=== PATIENT | female | born 1950 | race Caucasian/White ===

== ENCOUNTER → 2020-01-10 | Day surgery (SDC) | payer MEDICARE, OTHER ==
[2020-01-07 09:38] LABS: BASOPHILS # (AUTO) 0.1 (0.0-0.1); BASOPHILS % 1.3 % (0.0-1.0); EOSINOPHILS # (AUTO) 0.1 (0.0-0.4); EOSINOPHILS % 2.6 % (0.0-6.0); HEMATOCRIT 37.6 % (34.2-44.1); HEMOGLOBIN 11.7 g/dL (12.0-16.0); LYMPHOCYTES # (AUTO) 1.7 (1.0-3.2); LYMPHOCYTES % 31.4 % (18.0-39.1); MEAN CORPUSCULAR HEMOGLOBIN 28.1 pg (28-32); MEAN CORPUSCULAR HGB CONC 31.1 g/dL (31-35); MEAN CORPUSCULAR VOLUME 90.2 fL (81-99); MONOCYTES # (AUTO) 0.5 (0.2-0.8); MONOCYTES % 8.6 % (4.4-11.3); NEUTROPHILS # (AUTO) 3.1 (2.1-6.9); NEUTROPHILS % 55.9 % (38.7-80.0); PLATELET COUNT 275 x10e3/uL (140-360); RED BLOOD COUNT 4.17 x10e6/uL (3.6-5.1); RED CELL DISTRIBUTION WIDTH 15.9 % (11.7-14.4)
[~2020-01-10] MED LIST: BENTYL10 MG/1 ML PO; CALCIUM PO; CRESTOR10 MG PO; DEXILANT60 MG PO; FENOFIBRATE145 MG PO; FENTANYL CITRATE/PF 100MCG/2 ML INJ ONE; LIDOCAINE HCL 2% LOCAL INJ 5 ML SDV VIAL INJ ONE; LISINOPRIL10 MG PO; LYRICA100 MG PO; METFORMIN HCL500 MG PO; MIDAZOLAM HCL 2 MG/2 ML VIAL ONE; ONE DAILY COMP1 EACH PO; PLAVIX75 MG PO; PROPOFOL IV EMULSION 10 MG/ML 20 ML VIAL ONE; SYMBICORT 16010.2 GM INH; VITAMIN B-121000 MCG PO; VITAMIN B6 PO; VITAMIN D350 MCG PO
--- OUTSIDE RECORDS SUMMARY | 2020-01-10 07:48 | XMS REPORT ---
Author Author [facility] t Organization [facility] t Address [address] [facility] [place] [address] Phone Unavailable Care Team Providers Care Inbound Telemarketer Name Role Phone IDA FORTE MD PCP ROBERT FORTE Attphys Unavailable NEGRO MENESES Attphys Unavailable Jim HANSEN, Olivier Attphys Sweetie KOHLER Attphys Unavailable Tika GARZA Attphys Unavailable FORTE, SOUHEIL Attphys Unavailable FORTE, SOUHEIL Admphys Unavailable Payers Payer Name Policy Type Policy Number Effective Date Expiration Date S ource Medicare A & B [id number] 2017 00:00:00 [facility] [id number] 2010 00:00:00 [facility]-PresentMilitary xxxxxx xxx 2009 00:00:00 Juan Daniel Booth MEDICAREMEDICARE PART A AND Bxxxxxxxxxxx8-PresentHOUSweetie [place], [place] 2017 00:00:00 Juan Daniel [facility] Medicare A & B [id number] 2017 00:00:00 C [facility] [id number] 2010 00:00:00 [facility] Medicare A & B [id number] 2017 00:00:00 C [facility] [id number] 2010 00:00:00 [facility] Problems Condition Name Condition Details Condition Category Status Onset Date Resolution Date Last Treatment Date Treating Clinician Comments Source Anemia Anemia Problem Active [facility] Gastrointestinal hemorrhage GI bleed Problem Active [facility] Allergies, Adverse Reactions, Alerts Allergy Name Allergy Type Status Severity Reaction(s) Onset Date Inacti ve Date Treating Clinician Comments Source Sulfamethoxazole Allergy to Substance Active Unknown 2019-09-10 00:00:00 [facility] Trimethoprim Allergy to Substance Active Unknown 2019-09-10 00:00: 00 [facility] Metronidazole Allergy to Substance Active Unknown 2019-09-10 00:00 :00 [facility] Levofloxacin Allergy to Substance Active Unknown 2019-09-10 00:00: 00 [facility] Sulfamethoxazole-Trimethoprim Propensity to adverse reactions to dr shreya Richter Other (See Comments) 2019-03-19 00:00:00 "blisters on hands" Juan Daniel Booth Metronidazole Propensity to adverse reactions to drug Active Shortness Of Breath 2019-03-19 00:00:00 Juan Daniel Booth Levofloxacin Propensity to adverse reactions to drug Active Shortness Of Breath 2019-03-19 00:00:00 Juan Daniel Booth MYCIN Allergy to Substance Active Unknown 2017-05-26 00:00:00 [facility] Social History Social Habit Start Date Stop Date Quantity Comments Source Sex Assigned At Elizabeth allen Leobardo Medications Ordered Medication Name Filled Medication Name Start Date Stop Da te Current Medication? Ordering Clinician Indication Dosage Frequency Signature (SIG) Comments Components Source ibuprofen (ADVIL,MOTRIN) 400 MG tablet 2019-02-27 2 00:00:00 2019-04-19 04:59:00 No 400mg Q6H Take 1 tablet (400 mg total) by mouth every 6 (six) hours as needed for mild pain or moderate pain for up to 30 days. Juan Daniel Booth acetaminophen-codeine (TYLENOL WITH CODEINE #3) 300-30 mg pe r tablet 2019-03-19 00:00:00 2019-03-27 04:59:00 No 1{tbl} Q6H Take 1 tablet by mouth every 6 (six) hours as needed for mild pain or moderate pain for up to 7 days. Juan Daniel Booth Budesonide/Formoterol Fumarate (Symbicor t 80-4.5 Mcg Inhaler) 10.2 Gm Hfa.aer.ad Budesonide/Formoterol Fumarate (Symbicor t 80-4.5 Mcg Inhaler) 10.2 Gm Hfa.aer.ad Yes 1 Twice A Day [facility] Dexlansoprazole (Dexilant) 60 Mg Cap. Dexlansopra zole (Dexilant) 60 Mg Cap. Yes 60 Daily [facility] Fenofibrate Nanocrystallized (Fenofibrate) 145 Mg Tabl et Fenofibrate Nanocrystallized (Fenofibrate) 145 Mg Tablet Yes 145 Daily [facility] Lisinopril 10 Mg Tablet Lisinopril 10 Mg Tablet Yes 20 Daily [facility] Metformin Hcl 500 Mg Tablet Metformin Hcl 500 Mg Tablet Yes 500 Twice A Day [facility] Rifaximin (Xifaxan) 550 Mg Tablet Rifaximin (Xifaxan) 550 Mg Tablet Yes 550 Daily [facility] Rosuvastatin Calcium (Crestor) 10 Mg Tab Rosuvastatin Calcium (Crestor) 10 Mg Tab Yes 20 Daily [facility] Fluticasone Prop , 50 Mcg Nasal Fluticasone Prop , 50 Mcg Nasal 2019-01-10 00:00:00 No 50 As Needed [facility] Atorvastatin Calcium (Lipitor) 20 Mg Tablet, 80 Mg Ora l Atorvastatin Calcium (Lipitor) 20 Mg Tablet, 80 Mg Oral 2019-01-04 00:00:00 No 80 Bedtime [facility] Chlordiazepoxide/Clidinium Br (Librax Capsule) 1 Each Capsule, 1 Tab Oral Chlordiazepoxide/Clidinium Br (Librax Capsule) 1 Each Capsule, 1 Tab Oral 2019-01-04 00:00:00 No 1 Three Times A Day [facility] Cholecalciferol (Vitamin D3) (Vitamin D) 400 Unit Caps ule, Unknown Dose Oral Cholecalciferol (Vitamin D3) (Vitamin D) 400 Unit Capsule, Unknown Dose Oral 2019-01-04 00:00:00 No Daily [facility] Cyanocobalamin (Vitamin B-12) 1,000 Mcg Tab, Unknown D ose Oral Cyanocobalamin (Vitamin B-12) 1,000 Mcg Tab, Unknown Dose Oral 2019-01-04 00:00:00 N o Daily [facility] Cyclobenzaprine Hcl 10 Mg Tablet, 10 Mg Oral Cyclobenz aprine Hcl 10 Mg Tablet, 10 Mg Oral 2019-01-04 00:00:00 No 10 A s Needed as needed for Muscle Spasms [facility] Metoclopramide Hcl 10 Mg Tablet, 10 Mg Oral Metoclopra mide Hcl 10 Mg Tablet, 10 Mg Oral 2019-01-04 00:00:00 No 10 Before Meals And At Bedtime [facility] Pregabalin (Lyrica) 75 Mg Cap, 75 Mg Oral Pregabalin ( Lyrica) 75 Mg Cap, 75 Mg Oral 2019-01-04 00:00:00 No 75 Twice A Day [facility] Vitamin E Mixed (Vitamin E) 400 Unit Capsule, Unknown Dose Oral Vitamin E Mixed (Vitamin E) 400 Unit Capsule, Unknown Dose Oral 2019-01-04 00:00:00 N o Daily [facility] Bupropion Hcl 75 Mg Tablet, 150 Mg Oral Bupropion Hcl 75 Mg Tablet, 150 Mg Oral 2018-01-06 00:00:00 No 150 Twice A Day [facility] Gabapentin 300 Mg Capsule, 300 Mg Oral Gabapentin 300 Mg Capsule , 300 Mg Oral 2018-01-06 00:00:00 No 300 Three Times A Day [facility] Vital Signs Vital Name Observation Time Observation Value Comments Source Systolic blood pressure 2019-03-20 00:35:00 129 mm[Hg] Juan Daniel oBoth Diastolic blood pressure 2019-03-20 00:35:00 64 mm[Hg] Juan Daniel Booth Heart rate 2019-03-20 00:35:00 86 /min Juan Daniel Booth Body temperature 2019-03-20 00:35:00 36.78 Genet Cuco Booth Respiratory rate 2019-03-20 00:35:00 20 /min Cuco Booth Oxygen saturation in Arterial blood by Pulse oximetry 03-20 00:35:00 97 /min Juan Daniel Booth Body height 2019-03-19 21:18:00 167.6 cm Juan Daniel Booth Body weight 2019-03-19 21:18:00 79.379 kg Juan Daniel Booth BMI 2019-03-19 21:18:00 28.25 kg/m2 Juan Daniel Booth Procedures Procedure Date / Time Performed Performing Clinician [facility] e Computed tomography of abdomen and pelvis with contrast 2019 00:00:00 NEGRO MENESES [facility] US DUPLEX ARTERIAL LOWER EXTREMITY RIGHT 2019-03-19 23:38:00 Martha Millard US DUPLEX VENOUS LOWER EXTREMITY RIGHT 2019-03-19 23:17:00 Martha Olvera HC COMPLETE BLD COUNT W/AUTO DIFF 2019-03-19 22:25:00 Santy Vargas PROTHROMBIN TIME WITH INR 2019-03-19 22:25:00 Martha Vargas PARTIAL THROMBOPLASTIN TIME (PTT) 2019-03-19 22:25:00 Santy Vargas COMPREHENSIVE METABOLIC PANEL 2019-03-19 22:25:00 Marie Vargas ESTIMATED GFR 2019-03-19 22:25:00 Martha Vargas odshimon X-ray of chest, single view 2019-01-11 00:00:00 VIVIANE WINKLER [facility] EGD BIOPSY SINGLE/MULTIPLE 2019-01-10 00:00:00 ROBERT FORTE [facility] COLONOSCOPY AND BIOPSY 2019-01-10 00:00:[address] [facility] COLONOSCOPY W/LESION REMOVAL 2019-01-10 00:00:00 ROBERT FORTE [facility] COLONOSCOPY W/LESION REMOVAL 2019-01-10 00:00:00 FORTEROBERT Pascal [facility] Computed tomography of abdomen and pelvis with contrast [facility] Planned Activity Planned Date Details Comments Source Future Scheduled Test [code = ] Future Scheduled Test [code = ] Future Scheduled Test [code = ] Future Scheduled Test [code = ] Future Scheduled Test [code = ] Encounters Start Date/Time End Date/Time [facility]counter [facility] Encounter ID Source 2019-09-10 16:56:00 2019-09-10 22:16:00 Departed Emergency Room 1 GIDEON NEGRO [facility] [id number] [facility] 2019-01-23 13:07:00 2019-01-23 13:07:00 Outpatient [facility] [id number] [facility] 2019-01-11 11:35:00 2019-01-11 15:09:00 Departed Emergency Room 1 VIVIANE KOHLER [facility] [id number] [facility] 2019-01-10 07:58:00 2019-01-10 07:58:00 Registered Surgical Day Care [facility] [id number] [facility] 2018-12-13 14:30:00 2018-12-13 14:30:00 Registered Clinic 3 ROBERT FORTE [facility] [id number] [facility] 2018-11-07 07:45:00 2018-11-07 07:45:00 Registered Clinic 3 BAUTISTA GARZA [facility] [id number] [facility] 2018-01-05 20:10:00 2018-01-10 12:12:00 Discharged Inpatient 1 IDA FORTE [facility] [id number] [facility] 2017-05-26 08:23:00 2017-05-26 08:23:00 Registered Surgical Day Care [facility] [id number] [facility] Results Test Description Test Time Test Comments Results Result Comments Source CT ABDOMEN/PELVIS W 2019-12-25 11:36:00 [facility] [address] [address] Patient Name: CONOR CASILLAS MR #: [id number] : 1950 Age/Sex: 69/F Req #: [id number] Adm Physician: Ordered by: ROBERT FORTE MD Report #: [id number] Location: CT Room/Bed: Procedure: [id number] CT/CT ABDOMEN/PELVIS W Exam Date: 12/25/19 Exam Time: 1050 REPORT STATUS: Signed CT of the abdomen and pelvis, with contrast. History: Abdominal pain. Comparison: 09/10/2019. Technique: Multidetector CT scanning of the abdomen and pelvis was performed from the level of the lung bases to the inferior pubic rami after intravenous administration of contrast. Coronal and sagittal multiplanar reformations were obtained. RADIATION DOSE: Total DLP: 495.16 mGy*cm Dose modulation, iterative reconstruction, and/or weight based adjustment of the mA/kV was utilized to reduce the radiation dose to as low as reasonably achievable. FINDINGS: Stable scarring/atelectasis noted within the right middle lobe. The visualized lungs are otherwise unremarkable. The imaged portion of the heart demonstrates no significant abnormalities. The liver is enlarged and diffusely decreased in attenuation compatible with fatty infiltration, unchanged from the prior examination. No focal hepatic abnormality is identified. The gallbladder is surgically absent. There is no intrahepatic ductal dilatation. There is stable dilatation of the common bile duct measuring up to 8 mm likely secondary to reservoir phenomenon status post cholecystectomy. No radiopaque stones identified within the biliary ductal system. The stomach, spleen, pancreas, and bilateral adrenal glands are unremarkable. The kidneys are normal in size and location and enhance symmetrically. Punctate nonobstructing stones (at least 3) again identified within the inferior pole the right kidney. There is a stable 3 cm cyst identified from the mid right kidney. A stable 1.8 cm cyst is identified arising from the inferior pole the left kidney. There is no evidence for solid renal mass or hydronephrosis. No ureteral dilatation or stone is appreciated. Stable appearing phleboliths are noted within the pelvis, none of which can be localized to within the urinary system. There is moderate distention of the urinary bladder which otherwise appears unremarkable. The uterus is surgically absent. No abnormal adnexal masses are identified. There is stable fusiform dilatation of the infrarenal abdominal aorta measuring up to 3.2 cm in maximal AP diameter, unchanged from the prior examination. Atherosclerotic indications noted within the abdominal aorta. Patent right common iliac artery stent again noted. The IVC is unremarkable. Please note evaluation the bowel is limited without the use of enteric contrast material. The visualized loops of small and large bowel demonstrate no evidence of obstruction or inflammation. Scattered diverticula are noted within the sigmoid and descending colon without significant adjacent inflammatory changes suggest acute diverticulitis. There is no ascites or intraperitoneal free air. No abnormally enlarged lymph nodes are identified within the abdomen or pelvis. The osseous structures demonstrate stable degenerative changes without evidence for acute fracture or destructive process. The extraperitoneal soft tissues are unremarkable. IMPRESSION: 1. No acute abdominopelvic process identified. 2. Diverticulosis coli without evidence for acute diverticulitis. 3. Hepatomegaly and CT findings compatible with hepatic steatosis. 4.. Stable nonobstructive right-sided nephrolithiasis. 5. Stable dilatation of the common bile duct likely relating to post cholecystectomy status. 6. Stable fusiform dilatation of the infrarenal abdominal aorta measuring up to 3.2 cm. Follow-up examination is recommended every 3 years. Signed by: Dr. Mitchell Calvert MD on 12/25/2019 11:52 AM Dictated By: MITCHELL CALVERT MD 51 Transcribed By: MAK on 12/25/19 115 COPY TO: ROBERT FORTE MD CT ABDOMEN/PELVIS W 2019-09-10 21:37:[address] [address] Patient Name: CONOR CASILLAS MR #: [id number] : 1950 Age/Sex: 69/F Req #: [id number] Adm Physician: Ordered by: NEGRO MENESES MD, MD Report #: [id number] Location: ER Room/Bed: Procedure: [id number] CT/CT ABDOMEN/PELVIS W Exam Date: 09/10/19 Exam Time: 2123 REPORT STATUS: Signed EXAMINATION: CT of the abdomen and pelvis with contrast. TECHNIQUE: Spiral CT images of the abdomen and pelvis were performed from the lung bases to the lesser trochanters after the intravenous administration of 100 cc of Isovue-370 and the oral administration of dilute Gastrografin. Coronal and sagittal reformatted images were obtained. COMPARISON: CT abdomen and pelvis 12/13/2018 CLINICAL HISTORY:Lower (left lower quadrant) abdominal pain and gas, history of diverticulitis. DISCUSSION: ABDOMEN/PELVIS: LOWER THORAX:Stable linear scarring in the right middle lobe. No pulmonary nodules or masses. HEPATOBILIARY: Mild hepatomegaly measuring 16 cm in the right mid clavicular line, with marked diffuse hepatic steatosis. Normal contour. No focal lesions. No intrahepatic biliary ductal dilation. Stable mild dilation of the common bile duct, which measures 7 mm at the phil hepatis. No radiopaque intraluminal filling defects. GALLBLADDER: Cholecystectomy clips. SPLEEN: No splenomegaly. PANCREAS: No focal masses or ductal dilatation. ADRENALS: No adrenal nodules. KIDNEYS/URETERS: Stable 2 mm nonobstructing calculus in the right inferior pole (coronal image 58). Stable 1-2 mm nonobstructing calculus in the left region (coronal image 63). No other renal or ureteral calculi, hydronephrosis or obstruction. Stable 3.0 cm mostly exophytic fluid density simple cyst in the right mid to inferior aspect (62, image 40) . Stable 1.8 cm mostly exophytic fluid density simple cyst in the left inferior pole (series 2, image 41) Bilateral subcentimeter hypodensities which are too small to characterize but likely represent cysts. No solid enhancing lesions. PELVIC ORGANS/BLADDER: Bladder is unremarkable. Uterus is absent. No adnexal masses. PERITONEUM/RETROPERITONEUM: No free air or fluid. LYMPH NODES: No intra- abdominal, retroperitoneal, pelvic or inguinal lymphadenopathy. VESSELS: The celiac trunk,superior and inferior mesenteric and bilateral renal arteries are patent . Stable fusiform aneurysmal dilation of the infrarenal abdominal aorta, with maximal diameter of 3.2 x 3.1 cm (series 2, image 42). No surrounding contrast extravasation or hyperdensity. Atherosclerotic calcification of the distal abdominal aorta and proximal vessels. Right common iliac artery stent, patent. The portal, superior mesenteric and splenic veins are patent. GI TRACT: No bowel dilation or evidence of obstruction. Few scattered diverticula are noted in the ascending and sigmoid colon, without diverticulitis. BONES AND SOFT TISSUE: No aggressive lytic lesions. Degenerated discs in the lower thoracic and to a lesser degree lumbosacral spine at L2-L3. Facet hypertrophy L4-L5. Tissues are grossly unremarkable. IMPRESSION: 1. No acute abdominopelvic abnormalities. Specifically, no acute abnormal findings in the left lower quadrant to explain the patient's pain. 2. Hepatomegaly with diffuse steatosis. No focal lesions. 3. Stable bilateral nonobstructing renal calculi. No ureteral calculi, hydronephrosis or obstruction. 4. 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 5. Descending and sigmoid colon diverticulosis, without diverticulitis. 6. Stable mild dilation of the common bile duct, likely reflecting postcholecystectomy status. Signed by: Dr. Brody Holm M.D. on 09/10/2019 9:55 PM Dictated By: BRODY HOLM MD 54 Transcribed By: MAK on 09/10/192154 COPY TO: NEGRO MENESES Sodium Level 2019-09-10 19:28:00 Test Item Sodium Level (test code = 2951-2) 139 136-145 [facility] [id number] 19:28:00* Test Item Value Reference Range Interpretation Comments Potassium Level (test code = 2823-3) 4.0 3.5-5.1 [facility]Chloride [id number] 19:28:00* Test Item Value Reference Range Interpretation Comments Chloride Level (test code = 2075-0) 103 98-107 [facility]landCarbon Dioxide [id number] 19:28:00* Test Item Value Reference Range Interpretation Comments Carbon Dioxide Level (test code = 2028-9) 26 22-29 [facility]landAnion [id number] 19:28:00* Test Item Value Reference Range Interpretation Comments Anion Gap (test code = 53793-2) 14.0 8-16 [facility]landBlood Urea [id number] 19:28:00* Test Item Value Reference Range Interpretation Comments Blood Urea Nitrogen (test code = 3094-0) 11 7-26 [facility]landCreatinine2020-01-13 19:28:00* Test Item Value Reference Range Interpretation Comments Creatinine (test code = 2160-0) 0.91 0.57-1.11 [facility]landBUN/Creatinine [id number] 19:28:00* Test Item Value Reference Range Interpretation Comments BUN/Creatinine Ratio (test code = 3097-3) 12 6-25 [facility]landEstimat Glomerular Filtration Rate 2019-09-10 19:28:00* Test Item Value Reference Range Interpretation Comments Estimat Glomerular Filtration Rate (test code = 248943084) > 60 >60 Ranges were taken from the National Kidney Disease Education Program and the [place] on license of [place] [facility] [employer] literature.Reference ranges:60 or greater: Aplmnl18-86 ( for 3 consecutive months): Chronic kidney disease 15 or less: Kidney failureHCA [facility] Healthcare MainlandGlucose [id number] 19:28:00* Test Item Value Reference Range Interpretation Comments Glucose Level (test code = OAD0953) 97 74-118 [facility]landCalcium [id number] 19:28:00* Test Item Value Reference Range Interpretation Comments Calcium Level (test code = 69762-7) 9.9 8.4-10.2 [facility]landTotal [id number] 19:28:00* Test Item Value Reference Range Interpretation Comments Total Bilirubin (test code = 1975-2) 0.1 0.2-1.2 [facility]landAspartate Amino Transf (AST/SGOT) 2019-09-10 19:28:00* Test Item Value Reference Range Interpretation Comments Aspartate Amino Transf (AST/SGOT) (test code = Aspartate Amino Transf (AST/SGOT)) 22 5-34 [facility]landAlanine Aminotransferase (ALT/SGPT) 2019-09-10 19:28:00* Test Item Value Reference Range Interpretation Comments Alanine Aminotransferase (ALT/SGPT) (test code = 1742-6) 29 0-55 [facility] [id number] 19:28:00* Test Item Value Reference Range Interpretation Comments Total Protein (test code = 2885-2) 8.1 6.5-8.1 [facility]landAlbumin2020-01-13 19:28:00* Test Item Value Reference Range Interpretation Comments Albumin (test code = 1751-7) 4.0 3.5-5.0 [facility]landGlobulin2020-01-13 19:28:00* Test Item Value Reference Range Interpretation Comments Globulin (test code = 58080-2) 4.1 2.3-3.5 [facility]landAlbumin/Globulin [id number] 19:28:00 * Test Item Value Reference Range Interpretation Comments Albumin/Globulin Ratio (test code = 1759-0) 1.0 0.8-2.0 [facility]landAlkaline [id number] 19:28:00* Test Item Value Reference Range Interpretation Comments Alkaline Phosphatase (test code = 6768-6) 65 40-150 [facility]landCreatine Kinase [id number] 19:05:00* Test Item Value Reference Range Interpretation Comments Creatine Kinase MB (test code = 86113-0) 1.40 0-5.0 [facility]landTroponin [id number] 19:05:00* Test Item Value Reference Range Interpretation Comments Troponin I (test code = ZLR8708) 0.009 0-0.300 [facility]landThyroid Stimulating Hormone (TSH) 2019-09-10 19:05:00* Test Item Value Reference Range Interpretation Comments Thyroid Stimulating Hormone (TSH) (test code = 67150-2) 1.284 0.350-4.940 [facility]landCreatine [id number] 18:43:00* Test Item Value Reference Range Interpretation Comments Creatine Kinase (test code = 2157-6) 43 29-168 [facility]landLipase2020-01-13 18:43:00* Test Item Value Reference Range Interpretation Comments Lipase (test code = 3040-3) 36 8-78 [facility]landUrine [id number] 18:39:00* Test Item Value Reference Range Interpretation Comments Urine WBC (test code = 5821-4) 0-5 0-5 [facility]landUrine [id number] 18:39:00* Test Item Value Reference Range Interpretation Comments Urine RBC (test code = 69165-0) 0-5 0-5 [facility]landUrine [id number] 18:39:00* Test Item Value Reference Range Interpretation Comments Urine Bacteria (test code = 87391-4) FEW NONE [facility] MainlandUrine Epithelial [id number] 18:39:00 * Test Item Value Reference Range Interpretation Comments Urine Epithelial Cells (test code = 30229-3) MODERATE NONE [facility]landProthrombin [id number] 18:34:00* Test Item Value Reference Range Interpretation Comments Prothrombin Time (test code = 5902-2) 12.2 11.9-14.5 [facility]landProthromb Time International Ratio 2019-09-10 18:34:00* Test Item Value Reference Range Interpretation Comments Prothromb Time International Ratio (test code = 6301-6) 0.86 Oral Anticoagulant Therapy INR Values:1. Low Intensity Therapy 1.5 - 2.02 . Moderate Intensity Therapy 2.0 - 3.03. High Intensity Therapy(1) 2.5 - 3. 54. High Intensity Therapy(2) 3.0 - 4.05. Panic Value INR > 5.0 [facility] MainlandActivated Partial Thromboplast Time 2019-09-10 18:34:00* Test Item Value Reference Range Interpretation Comments Activated Partial Thromboplast Time (test code = 33871-3) 28.1 23.8-35.5 [facility]landWhite Blood [id number] 18:32:00* Test Item Value Reference Range Interpretation Comments White Blood Count (test code = 6690-2) 5.98 4.8-10.8 [facility]landRed Blood [id number] 18:32:00* Test Item Value Reference Range Interpretation Comments Red Blood Count (test code = 789-8) 4.69 3.6-5.1 [facility] MainlandHemoglobin2020-01-13 18:32:00* Test Item Value Reference Range Interpretation Comments Hemoglobin (test code = 98980-0) 13.5 12.0-16.0 [facility] MainlandHematocrit2020-01-13 18:32:00* Test Item Value Reference Range Interpretation Comments Hematocrit (test code = 4544-3) 42.8 34.2-44.1 [facility] MainlandMean Corpuscular Mwwbrq6989-86-38 18:32:00* Test Item Value Reference Range Interpretation Comments Mean Corpuscular Volume (test code = 787-2) 91.3 81-99 [facility] MainlandMean Corpuscular Srhbmdshbx2588-44-61 18:32:00* Test Item Value Reference Range Interpretation Comments Mean Corpuscular Hemoglobin (test code = 785-6) 28.8 28-32 [facility] MainlandMean Corpuscular Hemoglobin Concent 2019-09-10 18:32:00* Test Item Value Reference Range Interpretation Comments Mean Corpuscular Hemoglobin Concent (test code = 786-4) 31.5 31-35 [facility] MainlandRed Cell Distribution Eprvf5006-00-68 18:32:00* Test Item Value Reference Range Interpretation Comments Red Cell Distribution Width (test code = 00518-2) 14.4 11.7 -14.4 [facility] MainlandPlatelet Ggiki5869-06-40 18:32:00* Test Item Value Reference Range Interpretation Comments Platelet Count (test code = 777-3) 312 140-360 [facility] MainlandNeutrophils (%) (Auto)2019-09-10 18:32:00 * Test Item Value Reference Range Interpretation Comments Neutrophils (%) (Auto) (test code = 56902-8) 58.5 38.7-80.0 [facility] MainlandLymphocytes (%) (Auto)2019-09-10 18:32:00 * Test Item Value Reference Range Interpretation Comments Lymphocytes (%) (Auto) (test code = 736-9) 29.3 18.0-39.1 [facility] MainlandMonocytes (%) (Auto)2019-09-10 18:32:00* Test Item Value Reference Range Interpretation Comments Monocytes (%) (Auto) (test code = 5905-5) 7.9 4.4-11.3 [facility] MainlandEosinophils (%) (Auto)2019-09-10 18:32:00 * Test Item Value Reference Range Interpretation Comments Eosinophils (%) (Auto) (test code = 713-8) 3.0 0.0-6.0 [facility] MainlandBasophils (%) (Auto)2019-09-10 18:32:00* Test Item Value Reference Range Interpretation Comments Basophils (%) (Auto) (test code = 706-2) 1.0 0.0-1.0 [facility] MainlandIM GRANULOCYTES %2019-09-10 18:32:00* Test Item Value Reference Range Interpretation Comments IM GRANULOCYTES % (test code = IM GRANULOCYTES %) 0.3 0.0- 1.0 [facility] MainlandNeutrophils # (Auto)2019-09-10 18:32:00* Test Item Value Reference Range Interpretation Comments Neutrophils # (Auto) (test code = 751-8) 3.5 2.1-6.9 [facility] MainlandLymphocytes # (Auto)2019-09-10 18:32:00* Test Item Value Reference Range Interpretation Comments Lymphocytes # (Auto) (test code = 89484-7) 1.8 1.0-3.2 [facility] MainlandMonocytes # (Auto)2019-09-10 18:32:00* Test Item Value Reference Range Interpretation Comments Monocytes # (Auto) (test code = 742-7) 0.5 0.2-0.8 [facility] MainlandEosinophils # (Auto)2019-09-10 18:32:00* Test Item Value Reference Range Interpretation Comments Eosinophils # (Auto) (test code = 711-2) 0.2 0.0-0.4 [facility] MainlandBasophils # (Auto)2019-09-10 18:32:00* Test Item Value Reference Range Interpretation Comments Basophils # (Auto) (test code = 704-7) 0.1 0.0-0.1 [facility] MainlandAbsolute Immature Granulocyte (auto 2019-09-10 18:32:00* Test Item Value Reference Range Interpretation Comments Absolute Immature Granulocyte (auto (kimberli t code = Absolute Immature Granulocyte (auto) 0.02 0-0.1 [facility] MainlandUrine Ewokq6342-82-36 18:31:00* Test Item Value Reference Range Interpretation Comments Urine Color (test code = 5778-6) YELLOW YELLOW [facility] MainlandUrine Rvqqoep4388-66-43 18:31:00* Test Item Value Reference Range Interpretation Comments Urine Clarity (test code = 42569-3) CLEAR CLEAR [facility] MainlandUrine Specific Nylyttu6255-20-86 18:31:00 * Test Item Value Reference Range Interpretation Comments Urine Specific [place] (test code = 5811-5) 1.010 1.010-1.02 5 [facility] MainlandUrine vG7484-39-84 18:31:00* Test Item Value Reference Range Interpretation Comments Urine pH (test code = 53167-7) 7.5 5-7 [facility]landUrine Leukocyte Uxwpbmmw5422-82-26 18:31:00* Test Item Value Reference Range Interpretation Comments Urine Leukocyte Esterase (test code = 5799-2) NEGATIVE NEGATIVE [facility] MainlandUrine Pycqqnm8117-06-81 18:31:00* Test Item Value Reference Range Interpretation Comments Urine Nitrite (test code = 11695-5) NEGATIVE NEGATIVE [facility] MainlandUrine Sjpbres7753-33-42 18:31:00* Test Item Value Reference Range Interpretation Comments Urine Protein (test code = 5804-0) NEGATIVE NEGATIVE [facility] MainlandUrine Glucose (UA)2019-09-10 18:31:00* Test Item Value Reference Range Interpretation Comments Urine Glucose (UA) (test code = 2349-9) NEGATIVE NEGATIVE [facility] MainlandUrine Tkskiuk9812-48-97 18:31:00* Test Item Value Reference Range Interpretation Comments Urine Ketones (test code = 84603-6) NEGATIVE NEGATIVE [facility] MainlandUrine Mznyzxkmyjaf9227-94-19 18:31:00* Test Item Value Reference Range Interpretation Comments Urine Urobilinogen (test code = 75645-4) 0.2 0.2-1 [facility] MainlandUrine Jkmirxbwl8567-18-72 18:31:00* Test Item Value Reference Range Interpretation Comments Urine Bilirubin (test code = 1978-6) NEGATIVE NEGATIVE [facility] MainlandUrine Pfvyk0087-55-38 18:31:00* Test Item Value Reference Range Interpretation Comments Urine Blood (test code = 25580-1) TRACE NEGATIVE [facility] MainlandUs duplex venous lower extremity 2019-03-21 01:25:36 There is no evidence of DVT in the right lower extremity and left common femoral vein. [facility] MethodistUs duplex arterial lower reefhygcu7492-71-86 01:24:04* Test Item Value Reference Range Interpretation Comments Right tib/per trunk sys PSV (test code = 6428571992) 106.2 cm/s RT ATIB DIST PSV (test code = 2468123755) 69.80 cm/s RT ATIB MID PSV (test code = 9892181092) 92.40 cm/s RT ATIB PROX PSV (test code = 9008076160) 127.9 cm/s RT PROX FLITCH HANGER PSV (test code = 2247660814) 195.7 cm/s RT THA PROX PSV (test code = 2895668500) 67.2 cm/s RT POP DIST PSV (test code = 8885973667) 102.3 cm/s RT POP PROX PSV (test code = 6960550906) 116.1 cm/s RT INTERNET SALESPERSON DIST PSV (test code = 7325489052) 73.60 cm/s RT INTERNET SALESPERSON MID PSV (test code = 7907207315) 80.10 cm/s RT INTERNET SALESPERSON PROX PSV (test code = 6467903703) 68.5 cm/s RT SFA DIST PSV (test code = 8398483840) 145.7 cm/s RT SFA MID PSV (test code = 3668829490) 149.6 cm/s RT SFA PROX PSV (test code = 2409331452) 193.9 cm/s R POP MID PSV (test code = 4950782826) 96.40 cm/s R PFA PROX PSV (test code = 2200186065) 87.1 cm/s JANIS (test code = JANIS) There are no hemodynamica lly significant lesions in the right lower extremity arterial system. [facility] MethodistProthrombin time with ESI8281-70-94 23:08:29* Test Item Value Reference Range Interpretation Comments Prothrombin time (test code = 5902-2) 12.2 11.5- 14.5 sec INR (test code = 05294-4) 0.9 Th e International Normalized Ratio (INR) is a therapeutic monitoring tool for patients who are stable on oral anticoagulant therapy. An INR of 2.0-3.0 is suggested for deep vein thrombosis/pulmonary embolism. Frances MethodistPartial thromboplastin time, xyvymmyjk2271-81-41 23:08:29* Test Item Value Reference Range Interpretation Comments PTT (test code = 18511-7) 29.8 23.0- 36.0 sec PTT therapeutic range for unfractionated heparin is61.0-112.0 seconds which corresponds to Anti-Xa0.3-0.7 U/ml. [facility] MethodistComprehensive metabolic jokqv2588-84-04 23:01:51* Test Item Value Reference Range Interpretation Comments Sodium (test code = 2951-2) 141 135- 148 mEq/L Potassium (test code = 2823-3) 4.0 3.5- 5.0 mEq/L Chloride (test code = 5-0) 105 98- 112 mEq/L CO2 (test code = 2027-9) 22 24- 31 mEq/L L Anion gap (test code = 56923-5) 14@ANIO 7- 15 mEq/L BUN (test code = 3094-0) 15 mg/dL 8-23 Creatinine (test code = 2160-0) 0.80 mg/dL 0.5-0.9 Glucose (test code = 2345-7) 155 mg/dL 65-99 H Calcium (test code = 28065-7) 10.0 mg/dL 8.8-10.2 Protein (test code = 2885-2) 7.5 g/dL 6.3-8.3 4.6-7.0 g/dL1 week 4.4-7.6 g/dL7 months-1year 5.1-7.3 g/dL1-2 years 5.6-7.5 g/dL>3 years 6.0-8.0 g/zL56-209 6.3-8.3 g/dL Albumin (test code = 1751-7) 4.5 g/dL 3.5-5 A/G ratio (test code = 1759-0) 1.5 0.7-3.8 Alkaline phosphatase (test code = 6768-6) 69 U/L 35-104 AST (test code = 1920-8) 23 U/L 10-35 ALT (test code = 1742-6) 30 U/L 5-50 Total bilirubin (test code = 1975-2) <0.2 0-1.2 Lab Interpretation (test code = 67210-7) Abnormal Juan Daniel MethodistEstimated AOV9102-62-03 23:01:51* Test Item Value Reference Range Interpretation Comments Estimated GFR (test code = 5488) 76 mL/min/1.73 m2 Catergory Units InterpretationG1 >=90 Normal or highG2 60-89 Mildly mrspfsaxeB8b 45-59 Mildly to moderately xahacztrqM8r 30-44 Moderately to severely decreasedG4 15-29 Severely decreasedG5 <15 Kidney failureThe eGFR was calculated using the Chronic Kidney Disease Epidemiology Collaboration (CKD-EPI) equation. Interpretation is based on recommendations of the National Kidney Foundation-Kidney Disease Outcomes Quality Initiative (NKF-KDOQI) published in 2014. [facility] MethodistCBC with platelet and mybvrbxygqaq1036-91-41 22:38:11* Test Item Value Reference Range Interpretation Comments WBC (test code = 23981-0) 7.07 4.50- 11.00 k/uL RBC (test code = 57256-7) 4.30 m/uL 4.2-5.5 HGB (test code = 718-7) 13.5 g/dL 12-16 HCT (test code = 4544-3) 42.2 % 37-47 MCV (test code = 787-2) 98.1 fL 82-100 MCH (test code = 785-6) 31.4 pg 27-34 MCHC (test code = 786-4) 32.0 g/dL 31-37 RDW - SD (test code = 57068-3) 47.5 fL 37-55 MPV (test code = 03987-2) 10.4 fL 8.8-13.2 Platelet count (test code = 50453-0) 271 150- 400 k/uL Nucleated RBC (test code = 13818-0) 0.00 /100 WBC Neutrophils (test code = 02325-0) 65.1 % 39-69 Lymphocytes (test code = 72407-5) 25.7 % 25-45 Monocytes (test code = 25006-4) 6.4 % 0-10 Eosinophils (test code = 30798-1) 1.8 % 0-5 Basophils (test code = 15188-5) 0.6 % 0-1 [facility] MethodistStool Czskufzadkrk7847-58-02 10:24:00* Test Item Value Reference Range Interpretation Comments Stool Calprotectin (test code = 31733-6) <16 0-120 Concentration Interpretation Follow-Up<16 - 50 ug/g Normal None>50 -120 ug/g Borderline Re-evaluate in 4-6 weeks >120 ug/g Abnormal Repeat as clinically indicatedPerformed at: - [facility] [id number] Director: Constantin Moreira MD, Phone: [phone] [facility] 2 RPZI0212-74-95 13:11:00 [facility] [address] [place] [address] Patient Name: CONOR CASILLAS MR #: [id number] : 1950 Age/Sex: 68/F Req #: [id number] Adm Physician: Ordered by: VIVIANE KOHLER MD Report #: [id number] Location: ER Room/Bed: Procedure: [id number] DX/ABDOMEN 2 VIEW Exam Date: 01/11/19 Exam Time: 12 30 REPORT STATUS: Signed Exam : Abdominal film Clinical History: Abdominal pain after EGD and colonoscop y Comparison: CT abdomen and pelvis 12/13/2018 DISCUSSION: Bowel g as pattern shows no dilated, air-filled loops of bowel. Gas and fecal material is noted throughout the large bowel. Right upper quadrant surgical clips. Rig ht common iliac arterial stent. No mass effect or organomegaly. No fra nk pneumoperitoneum on the upright radiograph. IMPRESSION: Nonobstructive b owel gas pattern. No juan pneumoperitoneum per clinical query. Signed by: Dr. Timoteo Eldridge M.D. on 01/11/2019 1:13 PM Dictated B y: TIMOTEO ELDRIDGE MD 12 Transcribed By: MAK on 01/11/191312 COPY TO: VIVIANE KOHLER MD CHEST SINGLE (NOT PORTABLE)2019-01-11 13:09:00 [place] [address] Patient Name: CONOR CASILLAS MR #: [id number] : 1950 Age/Sex: 68/F Req #: [id number] Adm Physician: Ordered by: VIVIANE KOHLER MD Report #: [id number] Location: ER Room/Bed: Procedure: [id number] DX/CHEST SINGLE (NOT PORTABLE) Exam Date: 01/11/19 Exam Time: 1230 REPORT STATUS: Sign ed Examination: Single AP view of the chest. COMPARISON: None. ELIN CATION: Post colonoscopy, evaluate for free air DISCUSSION: Lungs are well-inflated and without focal consolidation, pleural effusion, or pneum othorax. Hazy opacity along the cardiac apex shown to represent prominent epic ardial fat on comparison CT. Tortuous thoracic aorta with atherosclerotic calc ification. Normal heart size. No pulmonary edema. No acute osseous abnormal ity. No free air under the diaphragm. IMPRESSION: No acute cardi opulmonary abnormality. No juan pneumoperitoneum per clinical query. Signed by: Dr. Timoteo Eldridge M.D. on 01/11/2019 1:10 PM Dictated By: TIMOTEO ELDRIDGE MD 09 Transcribed By: MAK on 01/11/19 1310 COPY TO: VIVIANE KOHLER MD Clostridium Difficile Toxin A & S2468-65-18 14:27:00* Test Item Value Reference Range Interpretation Comments Clostridium Difficile Toxin A & B (test code = 449518076) NEGATIVE NEGATIVE Testing on stool aspirate specimens is outside lumber yard worker claims since specime n type not validated on this assay.[facility] Dallastool Lactoferrin (LAB)2019-01-10 13:49:00* Test Item Value Reference Range Interpretation Comments Stool Lactoferrin (LAB) (test code = 82456-3) NEGATIVE NEGATIVE Testing on stool aspirate specimens is outside lumber yard worker claims since specime n type not validated on this assay.[facility] Bedside Fakgkxs7444-74-57 08:39:00* Test Item Value Reference Range Interpretation Comments Bedside Glucose (test code = 94003-0) 122 70-120 Meter ID: [id number] [facility] 2018-12-13 16:04:00 [place] [id number] [place] [address] Patient Name: CONOR CASILLAS MR #: [id number] : 1950 Age/Sex: 68/F Req #: [id number] Adm Physician: Ordered by: ROBERT FORTE MD Report #: [id number] Location: CT Room/Bed: Procedure: [id number] CT/CT ABDOMEN/PELVIS W Exam Date: 12/13/18 Exam Time : 1546 REPORT STATUS: Signed EXA MINATION: CT of the abdomen and pelvis with contrast. TECHNIQUE: Spiral CT images of the abdomen and pelvis were performed from the lung bases to the lesser trochanters after the intravenous administration of 100 cc Isovue-370 a nd the oral administration of water. Coronal and sagittal reformatted images w ere obtained. COMPARISON: None. CLINICAL HISTORY:Diarrhea D ISCUSSION: ABDOMEN/PELVIS: LOWER THORAX:Trace pericardial effusion. Goode bsegmental atelectasis in the right middle lobe and bilateral lower lobes. HEPATOBILIARY: Hepatic parenchyma is diffusely hypoattenuating compatible with steatosis. Regional sparing in the periphery of the right lobe and along the gallbladder fossa. Status post cholecystectomy. No focal hepatic lesion. No intrahepatic biliary ductal dilatation. SPLEEN: No splenomegaly. PANCREAS: No focal masses or ductal dilatation. ADRENALS: No adrenal nodules. KIDNEYS/URETERS: 3 cm exophytic simple cyst projecting from the r ight kidney. 1.8 cm exophytic simple cyst projecting from the left kidney. Add itional subcentimeter hypoattenuating lesions too small to further characteriz e but likely represent small cysts. Punctate nonobstructing right lower pole r enal calculi seen on series 2 image 41 and 42. Punctate left lower pole renal calculi seen on coronal image 55 and 56. No hydronephrosis. PELVIC ORGANS /BLADDER: Urinary bladder is unremarkable. Uterus is not identified and has pr esumably been resected. No adnexal mass. PERITONEUM/RETROPERITONEUM: No asc ites. No pneumoperitoneum. LYMPH NODES: No pelvic sidewall, retroperitoneal , or mesenteric lymphadenopathy. VESSELS: Mild fusiform aneurysmal dilata tion of the infrarenal abdominal aorta to a maximum of 3.2 cm seen on series 2 image 42. Patent right common iliac artery stent. Diffuse atherosclerotic kenji cification of the iliac arterial systems without aneurysmal dilatation. Portal vein, splenic vein, and central superior mesenteric vein are patent. GI TRACT: The large bowel shows no evidence of distention or wall thickening. The re are diverticula scattered along the descending and sigmoid colon without ab normal enhancement or adjacent inflammatory change. The appendix is normal. No small bowel dilatation to suggest obstruction. BONES AND SOFT TISSUE: No f ocal soft tissue abnormalities. No osseous destructive lesions. Mild multileve l degenerative disc changes and facet arthropathy of the lumbar spine. IMPRESSION: No acute intra-abdominal or pelvic CT abnormalities. T race pericardial effusion. Hepatic steatosis. Punctate bilateral nonob structing renal calculi. Mild fusiform aneurysmal dilatation of the infrare nal abdominal aorta (3.2 cm). Patent right common iliac arterial stent. L arge bowel diverticulosis without evidence of diverticulitis. Signed by: Dr Priya Eldridge M.D. on 12/13/2018 4:14 PM Dictated By: TIMOTEO ELDRIDGE MD 13 Transcribed By: DARIUS ROMAN on 12/13/181613 COPY TO: ROBERT FORTE MD MRI BRAIN WO 2018-11-07 09:07:00 [place] [address] Patient Name: CONOR CASILLAS MR #: [id number] : 1950 Age/Sex: 68/F Req #: [id number] Adm Physician: Ordered by: BAUTISTA GARZA M.D. Report #: [id number] Location: MRI Room/Bed: Procedure: [id number] MRI/MRI BRAIN WO Exam Date: Exam Time: REPORT STATUS: Signed Examination: MRI BRAIN WITHOUT CONTRAST History:Left-sided facial numbness and pain. Compar kathy studies:Head CT performed January 05, 2018. Technique: Sagittal T1; coronal T2 FLAIR: axial T1, GRE T2 FSE, T2 FLAIR and DWI; axial 3-D T2 through the in ternal auditory canals. Intravenous contrast: None. Findings: Scalp : No abnormal signal. No masses. Bone marrow: Normal in signal intensity. Brain volume: Adequate for age. No volume loss. Ventricles: Normal in size and configuration. No hydrocephalus. Extra-axial spaces: No abnormali ties. Parenchyma: There are patchy and confluent areas of T2/FLAIR hyperi ntensity in the periventricular and subcortical and pontine white matter, nons pecific. No masses, hemorrhage, or acute vascular insults. Suprasellar a nd sellar region: No abnormalities. Craniocervical junction: No abnormalities. The foramen magnum is patent. No Chiari malformations. Vessels: Normal flow- voids in the arteries and sinuses. Cerebellopontine angles: There are no mass in the giacomo combining to cisternal segments of the trigeminal nerves, in Meckel's caves or in the cavernous sinuses bilaterally. No vessels are identified in the trigeminal nerve root entry zones. IMPRESSION: 1. N o abnormalities of the internal auditory canals or root entry zone or cisterna l trigeminal nerves. 2. Mild chronic microvascular ischemic change. S igned by: Dr. Barbara Galvan M.D. on 11/07/2018 9:12 AM Dictated By: JEFRY ROD MD 1 Transcribed By: MAK on 11/07/18911 COPY TO: BAUTISTA PARIKH MD SCR MAMM BILATERAL MERRILL CAD RTBKRHS9864-03-83 09:36:25 - SCR MAMM BILATERAL MERRILL CAD DIGITALBILATERAL DIGITAL SCREENING MAMMOGRAM 3D/2D WITH CAD: 07/12/2018CLINICAL: Asymptomatic. Digital breast tomosynthesis was performed in addition to routine CC and MLO views. Current mammographic images were evaluated by either a [employer] M-Vu or a [employer] ImageChecker CAD (computer aided detection system). Comparison is made to exams dated 07/15/2017 mammogram, 07/16/2016 mammogram, 06/20/2015 mammogram, 06/03/2014 mammogram, 05/29/2013 mammogram, and 05/16/2012 mammogram - [facility]. There are scattered fibroglandular tissues in both breasts. No suspicious mass, architectural distortion, malignant type calcification, or lymph node abnormality detected. Breast architecture is stable compared to prior exams.IMPRESSION: NEGATIVEThere is no mammographic evidence of malignancy. Resume annual screening mammography in one year. Deborah omer/penmindi:07/14/2018 09:36:25 Tap Out Operator: Lisa Ashley FW, [facility] sent: BIRADS 1-2 Normal Mammogram BI-RADS: 1 NegativeCT ABDOMEN/PELVIS W [facility] [address] [place] [address] Patient Name: CONOR CASILLAS MR #: [id number] : 1950 Age/Sex: 67/F Req #: [id number] Adm Physician: Ordered by: BRUNA JOHN MD Report #: [id number] Location: ER Room/Bed: Procedure: [id number] CT/CT ABDOMEN/PELVIS W Exam Date: 01/05/18 Exam Time: 0 REPORT STAT US: Signed PROCEDURE: CT ABDOMEN AND PELVIS WITH CONTRAST TECHNIQUE: The abdomen and pelvis were scanned utilizing a multidetector helical scanner from the diaphragm to the lesser trochanter after the IV administration of 100 cc of Isovue 370 and the oral administration of Gastrografin. Coronal and sagittal multiplanar reformations were obtained. Total DLP: 457.56 mGy- cm COMPARISON: None. INDICATIONS: ABDOMINAL PAIN. Left-sided faci al tingling. Swollen stomach. FINDINGS: LOWER THORAX: Bibasilar atele ctasis. Moderate pericardial effusion. HEPATOBILIARY: No focal hepatic les ions. No biliary ductal dilatation. Right upper quadrant cholecystectomy cli ps. SPLEEN: No splenomegaly. PANCREAS: No focal masses or ductal dilatation. ADRENALS: No adrenal nodules. KIDNEYS/URETERS: No hydronephrosis or jenny id mass lesions. 2.4 cm simple cyst in the right kidney. Additional small er cysts in the superior pole in the right kidney. 1.7 cm simple cyst in the inferior pole of left kidney. 2 punctate 2-3 mm stones in lower pole o f the right kidney. Questionable other similar-appearing tiny stones in bilat eral kidneys. PELVIC ORGANS/BLADDER: Uterus is surgically absent. Both ovaries are atrophic. Bladder is unremarkable. PERITONEUM / RETROPERIT ONEUM: No free air or fluid. LYMPH NODES: No lymphadenopathy. VESSELS: Mild to moderate atherosclerotic calcifications in the abdominal aorta. 1.2 cm cora g atherosclerotic calcification at the origin of the right renal artery. 3.2 cm infrarenal abdominal aneurysm. Right common iliac artery stent. GI T RACT: No distention or wall thickening. Appendix is normal. A few scattered c olonic diverticula especially sigmoid colon without evidence of diverticuliti s. Stomach is relatively decompressed with mild diffuse wall thickening. BONES AND SOFT TISSUES: Unremarkable. IMPRESSION: 1. Moderate alessio cardial effusion. 2. Moderate atherosclerotic calcifications with a 3.2 cm inf rarenal abdominal aortic aneurysm. Right common iliac artery stent. 3. Stom ach is decompressed with mild diffuse wall thickening. 4. At least two 2-3 mm stones identified in the right kidney. Questionable other stones in bilateral kidneys. Dictated by: Marco Leal M.D. on 01/05/2018 at 18:56 Electr onically approved by: Marco Leal M.D. on 01/05/2018 at 18:56 Dictat ed By: MARCO LEAL MD 55 Transc ribed By: CINDY on 01/05/181855 COPY TO: BRUNA JOHN MD CT BRAIN [place] [address] Patient Name: CONOR CASILLAS MR #: [id number] : 1950 Age/Sex: 67/F Req #: [id number] Adm Physician: IDA FORTE MD Ordered by: BRUNA JOHN MD Report #: [id number] Location: [facility] Room/Bed: [place] [address] Procedure: [id number] CT/CT BRAIN WO Exam Date: 01/05/18 Exam Time: 1 820 REPORT STATUS: Signed EXAMINATION: Head CT without contrast. HISTORY:Left-sided facial tingling. COMPARISON:None. TECHNIQUE: Multi detector axial images were obtained from the foramen magnum to the vertex with out contrast. The images were reconstructed using brain and bone algorithms. Thin section brain images were reformatted into coronal and sagittal planes. Intravenous contrast: None IMAGE QUALITY: Acceptable. FINDINGS: Skull/scalp: No lytic or blastic. lesions. No surgical changes. Pare nchyma: Nonspecific few, scattered supratentorial white matter hypodensity are likely related to small vessel ischemic changes. No acute hemorrhage, mass or acute major vascular territorial infarct. Arteries: No density suggestive of thrombosis. Dural sinuses: No abnormal density suggestive of thromb osis. Ventricles: No hydrocephalus or displacement. Extra-axial spa amrita: No abnormal density. Brain volume: Mild generalized cerebral volume loss. Craniocervical junction: No mass, Chiari malformation, or basilar invagination. Sella: No mass. Paranasal/mastoid sinuses: Imaged po rtions unremarkable. IMPRESSION: No acute intracranial abnormality. Mild supratentorial white matter microvascular ischemic changes. Mild gener alized cerebral volume loss. Signed by: Dr. Mary Guadarrama M.D. on 018 8:26 PM Dictated By: MARY GUADARRAMA MD 25 Transcribed By: MAK on 01/05/182025 COPY TO: BRUNA OJHN MD [facility] ([place] [address] Patient Name: CONOR CASILLAS MR #: [id number] : 1950 Age/Sex: 67/F Req #: [id number] Adm Physician: Ordered by: BRUNA JOHN MD Report #: [id number] Location: Room/Bed: Procedure: [id number] DX/ABDOMEN-1VIEW (KUB) Exam Date: 01/05/18 Exam Time: 1700 REPORT STAT US: Signed PROCEDURE: X-RAY ABDOMEN - KUB COMPARISON: None. I NDICATIONS: ABDOMINAL SWELLING FINDINGS: There are no dilated l oops of bowel to suggest obstruction. Positive oral contrast is seen in the s mall bowel. Positive oral contrast has not reached the colon. There are no ma sses or abnormal calcifications. There is no evidence of free air. No acute osseous abnormalities are present. Right common iliac stent. Right upper q uadrant cholecystectomy clips. CONCLUSION: No acute abdominal ab normality. No significant in stool. Positive oral contrast is seen in small b owel loops. Dictated by: Marco Leal M.D. on 01/05/2018 at 17:41 Electronically approved by: Marco Leal M.D. on 01/05/2018 at 17:41 Electronically approved by: Marco Leal M.D. on 01/05/2018 at 17:42 D ictated By: MARCO LEAL MD 41 T ranscribed By: CINDY on 01/05/181741 COPY TO: BRUNA JOHN MD
--- OUTSIDE RECORDS SUMMARY | 2020-01-10 07:48 | XMS REPORT | Clinical Summary ---
Author Author [facility] Organization [facility] Address Unknown Phone Unavailable Care Team Providers Care [employer] Name Role Phone Torito Murdock MD PCP Allergies Comments Active Allergy Reactions Severity Noted Date "blisters on hands" Sulfamethoxazole-Trimetho Other (See 03/19/2019 prim Comments) Metronidazole Shortness Of High 03/19/2019 Breath Levofloxacin Shortness Of High 03/19/2019 Breath Medications End Date Status Medication Sig Dispensed Refills Start Date 04/18/2019 ibuprofen (ADVIL,MOTRIN) Take 1 tablet 30 tablet 0 400 MG tablet (400 mg 9 total) by mouth every 6 (six) hours as needed for mild pain or moderate pain for up to 30 days. 03/26/2019 acetaminophen-codeine Take 1 tablet 15 tablet 0 (TYLENOL WITH CODEINE #3) by mouth 9 300-30 mg per tablet every 6 (six) hours as needed for mild pain or moderate pain for up to 7 days. Active Problems Not on file Encounters Care Team Description Date Type Specialty Olivier Fernandez MD Acute pain of right lower extremity (Kirstin marce Dx); PAD (peripheral artery disease) ([facility]) 03/19/2019 Emergency Emergency Medicine after 01/09/2019 Social History Date Tobacco Use Types Packs/Day Years Used Never Assessed Sex Assigned at Date Recorded Not on file Industry Job Start Date Occupation Not on file Not on file Not on file Travel End Travel History Travel Start No recent travel history available. Last Filed Vital Signs Reading Time Taken Comments Vital Sign 129/64 03/19/2019 7:35 PM CDT Blood Pressure 86 03/19/2019 7:35 PM CDT Pulse 36.8 C (98.2 F) 03/19/2019 7:35 PM CDT Temperature 20 03/19/2019 7:35 PM CDT Respiratory Rate 97% 03/19/2019 7:35 PM CDT Oxygen Saturation - - Inhaled Oxygen Concentration 79.4 kg (175 lb) 03/19/2019 4:18 PM CDT Weight 167.6 cm (5' 6") 03/19/2019 4:18 PM CDT Height 28.25 03/19/2019 4:18 PM CDT Body Mass Index Plan of Treatment Health Maintenance Due Date Last Done Comments BREAST CANCER SCREENING 2002 COLONOSCOPY SCREENING 2002 SHINGLES VACCINES (#1) 2002 65+ PNEUMOCOCCAL VACCINE 2017 08/30/2011 (2 of 2 - PPSV23) INFLUENZA VACCINE 03/29/2020 06/13/2017, 06/29/2016 Procedures Comments Procedure Name Priority Date/Time Associated Diag nosis US DUPLEX ARTERIAL LOWER STAT 03/19/2019 EXTREMITY RIGHT 6:38 PM CDT US DUPLEX VENOUS LOWER STAT 03/19/2019 EXTREMITY RIGHT 6:17 PM CDT ESTIMATED GFR STAT 03/19/2019 5:25 PM CDT COMPREHENSIVE METABOLIC STAT 03/19/2019 PANEL 5:25 PM CDT PARTIAL THROMBOPLASTIN STAT 03/19/2019 TIME (PTT) 5:25 PM CDT PROTHROMBIN TIME WITH INR STAT 03/19/2019 5:25 PM CDT HC COMPLETE BLD COUNT STAT 03/19/2019 W/AUTO DIFF 5:25 PM CDT after 01/09/2019 Results * Us duplex arterial lower extremity (03/19/2019 6:38 PM CDT) Right tib/per 106.2 cm/s [facility] trunk sys PSV RT ATIB DIST 69.80 cm/s [facility] PSV RT ATIB MID PSV 92.40 cm/s [facility] RT ATIB PROX 127.9 cm/s [facility] PSV RT PROX CORPORATE ACCOUNTING MANAGER PSV 195.7 cm/s [facility] RT THA PROX 67.2 cm/s [facility] PSV RT POP DIST PSV 102.3 cm/s [facility] RT POP PROX PSV 116.1 cm/s [facility] RT SKEWER UP DIST PSV 73.60 cm/s [facility] RT SKEWER UP MID PSV 80.10 cm/s [facility] RT SKEWER UP PROX PSV 68.5 cm/s [facility] RT SFA DIST PSV 145.7 cm/s [facility] RT SFA MID PSV 149.6 cm/s [facility] RT SFA PROX PSV 193.9 cm/s [facility] R POP MID PSV 96.40 cm/s [facility] R PFA PROX PSV 87.1 cm/s [facility] Specimen Narrative Performed At [facility] There are no hemodynamically signifi cant lesions in the right lower extremity arterial system. Performing Organization Address [facility] one Number [facility] [address] [place] [address], [place] * Us duplex venous lower extremity (03/19/2019 6:17 PM CDT) Specimen Narrative Performed At [facility] There is no evidence of DVT in the r ight lower extremity and left common femoral vein. Performing Organization Address [facility] one Number [facility] [address] [place] [address], [place] * Estimated GFR (03/19/2019 5:25 PM CDT) Pathologist [facility] Estimated GFR 76 mL/min/1.73 m2 [place] Comment: EPISCOPALIAN CLEAR [facility] Interpretation G1 >=90 Normal or high G2 60-89 Mildly decreased G3a 45-59 Mildly to moderately decreased G3b 30-44 Moderately to severely decreased G4 15-29 Severely decreased G5 <15 Kidney failure The eGFR was calculated using the Chronic Kidney Disease Epidemiology Collaboration (CKD-EPI) equation. Interpretation is based on recommendations of the National Kidney Foundation-Kidney Disease Outcomes Quality Initiative (NKF-KDOQI) published in 2014. Specimen Plasma specimen Performing Organization Address City/[facility] Ph one Number [facility] DEPARTMENT [place] [id number] [place] [address] [place], [place] [address] PATHOLOGY AND GENOMIC MEDICINE [place] EPISCOPALIAN CLEAR [id number] [place] [address] [place] [address] [facility] * Partial thromboplastin time, activated (03/19/2019 5:25 PM CDT) Pathologist [facility] PTT 29.8 23.0 - 36.0 sec [place] Comment: [facility] PTT therapeutic range for [facility] unfractionated heparin is 61.0-112.0 seconds which corresponds to Anti-Xa 0.3-0.7 U/ml. Specimen Blood Performing Organization Address City/[facility] Ph one Number [facility] DEPARTMENT OF [id number] [place] [address] [place] [address] 58 PATHOLOGY AND GENOMIC MEDICINE [address] * Prothrombin time with INR (03/19/2019 5:25 PM CDT) [facility] Prothrombin 12.2 11.5 - 14.5 sec [facility] INR 0.9 [place] Comment: [facility] The International Normalized [facility] Ratio (INR) is a therapeutic monitoring tool for patients who are stable on oral anticoagulant therapy. An INR of 2.0-3.0 is suggested for deep vein thrombosis/pulmonary embolism. Specimen Blood Performing Organization Address [facility] one Number [facility] DEPARTMENT OF [address] [place] [address] [place] [address] PATHOLOGY AND GENOMIC MEDICINE [address] * CBC with platelet and differential (03/19/2019 5:25 PM CDT) [facility] WBC 7.07 4.50 - 11.00 k/uL [facility] RBC 4.30 4.20 - 5.50 m/uL [facility] HGB 13.5 12.0 - 16.0 g/dL [facility] HCT 42.2 37.0 - 47.0 % [facility] MCV 98.1 82.0 - 100.0 fL [facility] MCH 31.4 27.0 - 34.0 pg [facility] MCHC 32.0 31.0 - 37.0 g/dL [facility] RDW - SD 47.5 37.0 - 55.0 fL [facility] MPV 10.4 8.8 - 13.2 fL [facility] Platelet count 271 150 - 400 k/uL [facility] Nucleated RBC 0.00 /100 WBC [facility] Neutrophils 65.1 39.0 - 69.0 % [facility] Lymphocytes 25.7 25.0 - 45.0 % [facility] Monocytes 6.4 0.0 - 10.0 % [facility] Eosinophils 1.8 0.0 - 5.0 % [facility] Basophils 0.6 0.0 - 1.0 % [facility] Specimen Blood Performing Organization Address City/State/Zipcode [place] [address] [address] [place], [place] [address] PATHOLOGY AND GENOMIC MEDICINE [facility] [address] [place] [address] [facility] * Comprehensive metabolic panel (03/19/2019 5:25 PM CDT) Sodium 141 135 - 148 mEq/L [facility] Potassium 4.0 3.5 - 5.0 mEq/L [facility] Chloride 105 98 - 112 mEq/L [facility] CO2 22 (L) 24 - 31 mEq/L [facility] Anion gap 14@ANIO 7 - 15 mEq/L [facility] BUN 15 8 - 23 mg/dL [facility] Creatinine 0.80 0.50 - 0.90 mg/dL [facility] Glucose 155 (H) 65 - 99 mg/dL [facility] Calcium 10.0 8.8 - 10.2 mg/dL [facility] Protein 7.5 6.3 - 8.3 g/dL [place] Comment: [facility] 4.6-7.0 g/dL 1 week 4.4-7.6 g/dL 7 months-1year 5.1-7.3 g/dL 1-2 years 5.6-7.5 g/dL >3 years 6.0-8.0 g/dL 18-150 6.3-8.3 g/dL Albumin 4.5 3.5 - 5.0 g/dL [facility] A/G ratio 1.5 0.7 - 3.8 [facility] Alkaline 69 35 - 104 U/L [place] phosphatase [facility] AST 23 10 - 35 U/L [facility] ALT 30 5 - 50 U/L [facility] Total bilirubin <0.2 0.0 - 1.2 mg/dL [facility] Specimen Plasma specimen Performing Organization Address City/State/Zipcode [place] [address] [place] [address] PATHOLOGY AND GENOMIC MEDICINE [facility] [address] [place] [address] [facility] after 01/09/2019 Insurance Type Payer Benefit Subscriber ID Effective Phone Address Plan / Dates Group xxxxxxxxx [id number] resent Medicare MEDICARE MEDICARE xxxxxxxxxxx [id number] RODRÍGUEZ, PART A AND resent [place] ([place] [address] Advance Directives For more information, please contact: [phone] Patient Underwriter Explanation Type Date Recorded Advance Directives, 03/19/2019 7:09 PM Living Will and Medical Power of [employer] Emergency Services Manager
[2020-01-10 10:35] VITALS: BP 137/61
--- NOTE | 2020-01-10 12:55 | Operative Report ---
DATE OF PROCEDURE: 01/10/2020 SURGEON: Nazario Murdock MD PROCEDURE: EGD with polypectomy and biopsies. INDICATIONS FOR EGD: Upper abdominal pain. MEDICATIONS: The patient was done under MAC, please see anesthesiologist's note. PROCEDURE IN DETAIL: With the patient in left lateral decubitus position, a flexible fiberoptic Olympus gastroscope was introduced into the esophagus under direct visualization without any difficulty. There was some patchy erythema noted in distal esophagus. The scope was then advanced with ease into the stomach traversing a small sliding hiatal hernia. Mucosa overlying the antrum and the body revealed some patchy erythema and low-grade to moderate edema, and biopsies were obtained, sent to stain for H pylori. Pylorus was of normal contour and shape, was intubated with ease and the scope was advanced all the way to the second portion of the duodenum. Biopsies were obtained from the proximal second portion and duodenal bulb to rule out sprue. The scope was then withdrawn back into the stomach and retroflexed and some hyperplastic-appearing polyps were noted in the fundus and somewhat partially excised with the cold biopsy forceps. The scope was then straightened out, it was subsequently withdrawn. The patient tolerated procedure well. IMPRESSION: 1. Distal esophagitis, mild. 2. Small sliding hiatal hernia. 3. Gastritis biopsied, biopsies sent to stain for H pylori. 4. Gastric polyps, fundus, hyperplastic-appearing, some partially excised with cold biopsy forceps. 5. Rule out sprue. PLAN: Follow up histology. Increase Dexilant to 60 mg one p.o. a.c. b.i.d. Nazario Murdock MD [facility] /[id number] cc: Demar Murdock MD
== END | disposition home or self-care (01) ==
LOC: OR 07:27
PROVIDERS: ATTEND Internal Medicine Gastroenterology
DX: K29.70 Gastritis, unspecified, without bleeding (principal); K31.7 Polyp of stomach and duodenum; K29.80 Duodenitis without bleeding; K20.9 Esophagitis, unspecified; K44.9 Diaphragmatic hernia without obstruction or gangrene; Z86.010 Personal history of colon polyps; G47.33 Obstructive sleep apnea (adult) (pediatric); E11.9 Type 2 diabetes mellitus without complications; I10 Essential (primary) hypertension; J44.9 Chronic obstructive pulmonary disease, unspecified; I71.4 Abdominal aortic aneurysm, without rupture; E78.00 Pure hypercholesterolemia, unspecified; F17.210 Nicotine dependence, cigarettes, uncomplicated; Z88.1 Allergy status to other antibiotic agents; Z88.3 Allergy status to other anti-infective agents; Z01.810 Encounter for preprocedural cardiovascular examination; Z01.812 Encounter for preprocedural laboratory examination; Z11.59 Encounter for screening for other viral diseases; Z79.02 Long term (current) use of antithrombotics/antiplatelets; Z79.84 Long term (current) use of oral hypoglycemic drugs; Z80.0 Family history of malignant neoplasm of digestive organs
CPT/HCPCS: 36415 ×2; 43239; 82948; 85025; 87635; 88305; 88312; 93005; J2001; J2250; J2704; J3010

== ENCOUNTER 2020-09-29 15:37 | Emergency (ER) | payer MEDICARE, OTHER ==
[~2020-09-29 15:37] MED LIST changes: -FENTANYL CITRATE/PF 100MCG/2 ML INJ ONE; -LIDOCAINE HCL 2% LOCAL INJ 5 ML SDV VIAL INJ ONE; -MIDAZOLAM HCL 2 MG/2 ML VIAL ONE; -PROPOFOL IV EMULSION 10 MG/ML 20 ML VIAL ONE
[2020-09-29 16:21] LABS: BASOPHILS # (AUTO) 0.1 (0.0-0.1); EOSINOPHILS # (AUTO) 0.2 (0.0-0.4); EOSINOPHILS % 2.7 % (0.0-6.0); HEMATOCRIT 29.6 % (34.2-44.1); HEMOGLOBIN 8.5 g/dL (12.0-16.0); LYMPHOCYTES # (AUTO) 1.7 (1.0-3.2); LYMPHOCYTES % 25.5 % (18.0-39.1); MEAN CORPUSCULAR HEMOGLOBIN 23.4 pg (28-32); MEAN CORPUSCULAR HGB CONC 28.7 g/dL (31-35); MEAN CORPUSCULAR VOLUME 81.5 fL (81-99); MONOCYTES # (AUTO) 0.5 (0.2-0.8); MONOCYTES % 6.6 % (4.4-11.3); NEUTROPHILS # (AUTO) 4.3 (2.1-6.9); NEUTROPHILS % 63.9 % (38.7-80.0); PLATELET COUNT 371 x10e3/uL (140-360); RED BLOOD COUNT 3.63 x10e6/uL (3.6-5.1); RED CELL DISTRIBUTION WIDTH 16.5 % (11.7-14.4)
[2020-09-29 16:43] LABS: ALBUMIN 3.9 g/dL (3.5-5.0); ALBUMIN/GLOBULIN RATIO 1.2 (0.8-2.0); ANION GAP 14.1 mmol/L (8-16); CALCIUM 8.5 mg/dL (8.4-10.2); CREATININE, SERUM 1.08 mg/dL (0.57-1.11); MAGNESIUM 2.1 MG/DL (1.3-2.1); POTASSIUM 4.1 mmol/L (3.5-5.1)
[2020-09-29 16:49] LABS: CREATINE KINASE MB 5.6 ng/mL (0-5.0)
[2020-10-03] MEDS ORDERED: FEROSUL325 MG PO (09:07)
[2020-10-03] MEDS ORDERED: MONTELUKAST SOD10 MG PO (09:07)
[2020-10-03] MEDS ORDERED: PAMELOR25 MG PO (09:07)
[2020-10-03] MEDS ORDERED: LOSARTAN POTASS25 MG PO (09:07)
[2020-10-03] MEDS ORDERED: BIOTIN2500 MCG PO (09:07)
== END 2020-09-29 18:35 | disposition home or self-care (01) ==
LOC: ER 16:07
DX: D64.9 Anemia, unspecified (principal); R53.1 Weakness; I10 Essential (primary) hypertension; E11.9 Type 2 diabetes mellitus without complications; E78.5 Hyperlipidemia, unspecified; J44.9 Chronic obstructive pulmonary disease, unspecified
CPT/HCPCS: 36415; 71045; 80053; 82550; 82553; 83735; 84484; 85025; 93005; 99283

== ENCOUNTER → 2020-10-06 | Day surgery (SDC) | payer MEDICARE, OTHER ==
[~2020-10-06] MED LIST changes: +BIOTIN2500 MCG PO; +FENTANYL CITRATE/PF 100MCG/2 ML INJ ONE; +FEROSUL325 MG PO; +LOSARTAN POTASS25 MG PO; +MIDAZOLAM HCL 2 MG/2 ML VIAL ONE; +MONTELUKAST SOD10 MG PO; +PAMELOR25 MG PO
[2020-10-06 08:40] VITALS: BP 140/78
== END | disposition home or self-care (01) ==
LOC: ENDO 06:23
PROVIDERS: ATTEND Internal Medicine Gastroenterology
DX: K20.90 Esophagitis, unspecified without bleeding (principal); K31.7 Polyp of stomach and duodenum; K29.70 Gastritis, unspecified, without bleeding; K29.80 Duodenitis without bleeding; D64.9 Anemia, unspecified; G47.33 Obstructive sleep apnea (adult) (pediatric); E11.9 Type 2 diabetes mellitus without complications; I10 Essential (primary) hypertension; J44.9 Chronic obstructive pulmonary disease, unspecified; F17.210 Nicotine dependence, cigarettes, uncomplicated; Z88.1 Allergy status to other antibiotic agents; Z88.2 Allergy status to sulfonamides; Z88.8 Allergy status to other drugs, medicaments and biological substances; Z01.812 Encounter for preprocedural laboratory examination; Z20.822 Contact with and (suspected) exposure to COVID-19; Z79.84 Long term (current) use of oral hypoglycemic drugs
CPT/HCPCS: 36415; 43239; 43450; 82948; 88305; 88312; J2250; J3010; U0002

== ENCOUNTER 2021-01-02 08:15 | Emergency (ER) | payer MEDICARE, OTHER ==
[~2021-01-02] VITALS: Ht 167.6 cm; Wt 78.5 kg
[~2021-01-02 08:15] MED LIST changes: -FENTANYL CITRATE/PF 100MCG/2 ML INJ ONE; -MIDAZOLAM HCL 2 MG/2 ML VIAL ONE
[2021-01-02] MEDS ORDERED: DIATRIZOATE MEGL/DIATRIZOA SOD 30 ML BTL PO ONE (09:04)
[2021-01-02 09:19] LABS: BASOPHILS # (AUTO) 0.1 (0.0-0.1); EOSINOPHILS # (AUTO) 0.1 (0.0-0.4); EOSINOPHILS % 1.6 % (0.0-6.0); HEMATOCRIT 32.9 % (34.2-44.1); HEMOGLOBIN 9.8 g/dL (12.0-16.0); LYMPHOCYTES # (AUTO) 1.5 (1.0-3.2); LYMPHOCYTES % 25.7 % (18.0-39.1); MEAN CORPUSCULAR HEMOGLOBIN 23.1 pg (28-32); MEAN CORPUSCULAR HGB CONC 29.8 g/dL (31-35); MEAN CORPUSCULAR VOLUME 77.6 fL (81-99); MONOCYTES # (AUTO) 0.5 (0.2-0.8); MONOCYTES % 8.6 % (4.4-11.3); NEUTROPHILS # (AUTO) 3.6 (2.1-6.9); NEUTROPHILS % 62.8 % (38.7-80.0); PLATELET COUNT 386 x10e3/uL (140-360); RED BLOOD COUNT 4.24 x10e6/uL (3.6-5.1); RED CELL DISTRIBUTION WIDTH 18.6 % (11.7-14.4)
[2021-01-02 09:22] LABS: CLARITY,URINE CLEAR (CLEAR); COLOR,URINE YELLOW (YELLOW); KETONES,URINE NEGATIVE (NEGATIVE); LEUKOCYTE ESTERASE ,URINE NEGATIVE (NEGATIVE); NITRITE,URINE NEGATIVE (NEGATIVE); PROTEIN,URINE DIPSTICK NEGATIVE (NEGATIVE); URINE UROBILINOGEN 0.2 mg/dL (0.2 - 1)
[2021-01-02 09:36] LABS: BACTERIA,URINE FEW /HPF; EPITHELIAL CELLS,URINE FEW /LPF; RBC,URINE 0-5 /HPF (0-5); WBC,URINE (MAN) 0-5 /HPF (0-5)
[2021-01-02 09:39] LABS: ALBUMIN 3.9 g/dL (3.5-5.0); ALBUMIN/GLOBULIN RATIO 1.1 (0.8-2.0); ANION GAP 14.2 mmol/L (8-16); CALCIUM 9.6 mg/dL (8.4-10.2); CREATININE, SERUM 1.03 mg/dL (0.57-1.11); POTASSIUM 4.2 mmol/L (3.5-5.1)
[2021-01-02] MEDS ORDERED: SODIUM CHLORIDE 0.9% 500ML 500 ML IV STA (09:57)
[2021-01-02] MEDS ORDERED: SODIUM CHLORIDE 0.9% 50ML 50 ML ONE (10:09)
[2021-01-02] MEDS ORDERED: IOPAMIDOL 370 MG/ML 200 ML INFUS..BTL INJ ONE (10:09)
[2021-01-02] MEDS ORDERED: GOLYTELY SOLU4000 M1 PO (11:21)
== END 2021-01-02 11:45 | disposition home or self-care (01) ==
LOC: ER 08:19
DX: K59.00 Constipation, unspecified (principal); R10.30 Lower abdominal pain, unspecified; I10 Essential (primary) hypertension; E11.9 Type 2 diabetes mellitus without complications; E78.5 Hyperlipidemia, unspecified; J44.9 Chronic obstructive pulmonary disease, unspecified; I71.4 Abdominal aortic aneurysm, without rupture
CPT/HCPCS: 36415; 74174; 80053; 81001; 83690; 85025; 99284; Q9967

== ENCOUNTER 2021-02-14 07:51 | Emergency (ER) | payer MEDICARE, OTHER ==
[~2021-02-14] VITALS: Ht 167.6 cm; Wt 78.9 kg
[~2021-02-14 07:51] MED LIST changes: +GOLYTELY SOLU4000 M1 PO
[2021-02-14] MEDS ORDERED: DOXYCYCLINE HY100 MG PO (08:08)
[2021-02-14] MEDS ORDERED: ACETAMINOPHEN500 MG PO (08:08)
[2021-02-14] MEDS ORDERED: LIDOCAINE HCL 2% LOCAL 20 ML VIAL INJ ONE (08:15)
[2021-02-14] MEDS ORDERED: LIDOCAINE HCL 2% LOCAL 20 ML VIAL ONE (08:16)
== END 2021-02-14 08:53 | disposition home or self-care (01) ==
LOC: FSED 07:56
DX: S61.213A Laceration without foreign body of left middle finger without damage to nail, initial encounter (principal); W26.8XXA Contact with other sharp object(s), not elsewhere classified, initial encounter; Y92.000 Kitchen of unspecified non-institutional (private) residence as the place of occurrence of the external cause; I10 Essential (primary) hypertension; E11.9 Type 2 diabetes mellitus without complications; E78.5 Hyperlipidemia, unspecified; J44.9 Chronic obstructive pulmonary disease, unspecified
CPT/HCPCS: 99283; J2001

== ENCOUNTER 2021-11-05 13:55 | Emergency (ER) | payer MEDICARE, OTHER ==
[~2021-11-05] VITALS: Ht 167.6 cm; Wt 78.9 kg
[~2021-11-05 13:55] MED LIST changes: +ACETAMINOPHEN500 MG PO; +DOXYCYCLINE HY100 MG PO
[2021-11-05] MEDS ORDERED: ONDANSETRON HCL INJ 2MG/ML 2ML 2 MG/ML VIAL IV STA (14:54)
[2021-11-05] MEDS ORDERED: DONNATAL/LIDOCAINE/MAALOX 30 ML SUSP PO ONE (15:00)
[2021-11-05] MEDS ORDERED: SODIUM CHLORIDE 0.9% 50ML 50 ML ONE (15:05)
[2021-11-05] MEDS ORDERED: IOPAMIDOL 370 MG/ML 200 ML INFUS..BTL INJ ONE (15:05)
[2021-11-05] MEDS ORDERED: MAGNESIUM/ALUMINUM/SIMETHICONE 30 ML UDC ONE (15:30)
[2021-11-05] MEDS ORDERED: BELLADONNA ALK/PHENOBARBITAL 5 ML UDC ONE (15:30)
[2021-11-05] MEDS ORDERED: LIDOCAINE VISC 2% SOLN 15 ML UDC ONE (15:31)
== END 2021-11-05 17:01 | disposition home or self-care (01) ==
LOC: FSED 14:37
DX: R10.13 Epigastric pain (principal); N20.0 Calculus of kidney; I71.4 Abdominal aortic aneurysm, without rupture; N28.1 Cyst of kidney, acquired; K76.0 Fatty (change of) liver, not elsewhere classified; K21.9 Gastro-esophageal reflux disease without esophagitis
CPT/HCPCS: 74177; 99284; J2405; Q9967

== ENCOUNTER 2021-12-13 07:44 | Emergency (ER) | payer MEDICARE, OTHER ==
[~2021-12-13] VITALS: Ht 167.6 cm; Wt 74.6 kg
[2021-12-13] MEDS ORDERED: SODIUM CHLORIDE 0.9% 1000ML 1,000 ML IV STA (08:04)
[2021-12-13] MEDS ORDERED: KETOROLAC TROMETHAMINE 30 MG/ML VIAL IV STA ×2 (08:04→08:28)
[2021-12-13] MEDS ORDERED: ONDANSETRON HCL INJ 2MG/ML 2ML 2 MG/ML VIAL IV STA (08:04)
[2021-12-13] MEDS ORDERED: ONDANSETRON HCL INJ 2MG/ML 2ML 2 MG/ML VIAL ONE (08:20)
[2021-12-13] MEDS ORDERED: SODIUM CHLORIDE 0.9% 1000ML 1,000 ML ONE (08:20)
[2021-12-13] MEDS ORDERED: OMEPRAZOLE40 MG PO (08:35)
[2021-12-13] MEDS ORDERED: KERENDIA10 MG (08:35)
[2021-12-13] MEDS ORDERED: AMLODIPINE BESYL5 MG PO (08:35)
[2021-12-13] MEDS ORDERED: ONDANSETRON ODT8 MG PO (08:35)
[2021-12-13] MEDS ORDERED: CREON DR 12,001 EACH PO (08:38)
[2021-12-13] MEDS ORDERED: IBUPROFEN600 MG PO (09:09)
== END 2021-12-13 09:18 | disposition home or self-care (01) ==
LOC: FSED 07:52
DX: R10.31 Right lower quadrant pain (principal); N20.0 Calculus of kidney; K57.90 Diverticulosis of intestine, part unspecified, without perforation or abscess without bleeding; K76.0 Fatty (change of) liver, not elsewhere classified; I71.4 Abdominal aortic aneurysm, without rupture
CPT/HCPCS: 74176; 80053; 81003; 85025; 96374; 96375; 99284; J1885; J2405; J7030

== ENCOUNTER 2022-09-12 11:51 | Emergency (ER) | payer MEDICARE, OTHER ==
[~2022-09-12] VITALS: Ht 167.6 cm; Wt 64.9 kg
[~2022-09-12 11:51] MED LIST changes: +AMLODIPINE BESYL5 MG PO; +CREON DR 12,001 EACH PO; +IBUPROFEN600 MG PO; +KERENDIA10 MG; +OMEPRAZOLE40 MG PO; +ONDANSETRON ODT8 MG PO
[2022-09-12] MEDS ORDERED: ULTRAM 50MG50 MG PO (14:25)
== END 2022-09-12 14:41 | disposition home or self-care (01) ==
LOC: FSED 11:58
DX: S90.31XA Contusion of right foot, initial encounter (principal); W22.09XA Striking against other stationary object, initial encounter; Y93.6A Activity, physical games generally associated with school recess, summer camp and children; Y92.89 Other specified places as the place of occurrence of the external cause; I12.9 Hypertensive chronic kidney disease with stage 1 through stage 4 chronic kidney disease, or unspecified chronic kidney disease; E11.22 Type 2 diabetes mellitus with diabetic chronic kidney disease; N18.9 Chronic kidney disease, unspecified; E03.9 Hypothyroidism, unspecified; E78.5 Hyperlipidemia, unspecified; J44.9 Chronic obstructive pulmonary disease, unspecified; K21.9 Gastro-esophageal reflux disease without esophagitis
CPT/HCPCS: 99283